=== PATIENT | male | born 1940 | race Caucasian/White ===

== ENCOUNTER → 2016-09-12 09:21 | Outpatient (CLI) | payer MEDICARE ==
[2016-01-31 07:51] VITALS: BMI 28.1
[~2016-09-12 09:21] MED LIST: ASCORBIC ACID500 MG PO; BAYER CHEWABLE81 MG PO; LIPITOR80 MG PO; LOPRESSOR50 MG PO; METOPROLOL TART50 MG PO; NORCO 5/325 TAB1 TA1 PO; PRINIVIL20 MG PO
== END | disposition home or self-care (01) ==
LOC: D.CT 09:21
DX: C34.11 Malignant neoplasm of upper lobe, right bronchus or lung (principal)

== ENCOUNTER → 2018-08-06 08:20 | Outpatient (CLI) | payer MEDICARE ==
[~2018-08-06] VITALS: Ht 175.3 cm; Wt 88.5 kg
[2018-08-06 10:31] VITALS: Ht 175.3 cm; Wt 88.5 kg
== END | disposition home or self-care (01) ==
LOC: D.FANS 08:20
DX: E11.9 Type 2 diabetes mellitus without complications (principal)

== ENCOUNTER 2018-09-13 07:17 | Outpatient (CLI) | payer MEDICARE ==
[~2018-09-13] VITALS: Ht 175.3 cm; Wt 86.4 kg
[2018-09-13 07:46] LABS: BASOPHILS 0.1 % (0-2); EOSINOPHILS 0.7 % (0-7); HEMATOCRIT 41.8 % (42.0-54.0); IMMATURE GRANULOCYTES 0.2 % (0-5); LYMPHOCYTES 6.8 % (15-50); MCH 26.6 pg (26.0-34.0); MCHC 31.1 g/dL (31.0-37.0); MCV 85.7 fL (80.0-100.0); MEAN PLATELET VOLUME 9.2 fL (7.4-10.4); MONOCYTES 1.3 % (2-11); NEUTROPHILS 90.9 % (40-80); PLATELET COUNT 271 10x3/uL (130-400); RBC 4.88 10x6/uL (4.20-6.10); RDW 15.7 % (11.5-14.5); WBC 9.7 10x3/uL (4.8-10.8)
[2018-09-13 07:53] LABS: APTT 30.5 SECONDS (22.8-39.4); CALC OSMOLALITY 283 mosm/kg (275-300); CALCIUM 9.1 mg/dL (8.5-10.1); CARBON DIOXIDE 28.1 mmol/L (21.0-32.0); CHLORIDE - SERUM 102 mmol/L (98-107); GLUCOSE 113 mg/dL (74-106); INR 1.02 (0.85-1.17); POTASSIUM - SERUM 4.4 mmol/L (3.5-5.1); PROTIME 12.9 SECONDS (11.6-15.0); SODIUM 140 mmol/L (136-145); UREA NITROGEN 24 mg/dL (7-18); eGFR NON AFRICAN AMERICAN 77 mL/min (90-120)
[2018-09-13] MEDS ORDERED: SYMBICORT 16010.2 GM INH (08:34)
[2018-09-13] MEDS ORDERED: NORVASC5 MG PO (08:35)
[2018-09-13] MEDS ORDERED: FISH OIL 1,0001 CA1 PO (08:36)
[2018-09-13] MEDS ORDERED: IPRAT-ALBUT 0.5-3 ML UPD (08:38)
[2018-09-13 08:46] VITALS: BP 90/54; Ht 175.3 cm; Wt 86.4 kg
--- NOTE | 2018-09-13 15:10 | NUR ---
1510 LEFT WRIST PIV DC'D WITH TIP INTACT. PATIENT DRESSING IN PERSONAL CLOTHING. VOIDS LARGE AMOUNT IN TOILET WITHOUT DIFFICULTY 1520 DISCHARGE INSTRUCTIONS REVIEWED WITH PATIENT, SPOUSE, AND DAUGHTER. DISCHARGED HOME VIA WHEELCHAIR TO PRIVATE VEHICLE WITH SPOUSE AND DAUGHTER
== END 2018-09-13 15:20 | disposition home or self-care (01) ==
LOC: D.SP 07:17 → D.CT 10:00 → D.SP 10:30
PROVIDERS: Radiology Diagnostic Radiology
DX: C78.7 Secondary malignant neoplasm of liver and intrahepatic bile duct (principal); R91.1 Solitary pulmonary nodule; D73.89 Other diseases of spleen; Z01.812 Encounter for preprocedural laboratory examination

== ENCOUNTER → 2018-11-01 12:58 | Outpatient (CLI) | payer MEDICARE ==
[2018-09-13 08:46] VITALS: BMI 28.1
[~2018-11-01 12:58] MED LIST changes: +FISH OIL 1,0001 CA1 PO; +IPRAT-ALBUT 0.5-3 ML UPD; +NORVASC5 MG PO; +SYMBICORT 16010.2 GM INH
== END | disposition home or self-care (01) ==
LOC: D.CT 12:58
PROVIDERS: ATTEND Internal Medicine Medical Oncology
DX: C78.7 Secondary malignant neoplasm of liver and intrahepatic bile duct (principal); C34.11 Malignant neoplasm of upper lobe, right bronchus or lung